=== PATIENT | female | born 1985 | race American Indian/Alaskan Native ===

== ENCOUNTER 2021-03-17 08:03 | Emergency (ER) | payer MEDICAID ==
[2021-03-17 10:43] VITALS: BP 135/90
--- NOTE | 2021-03-17 11:18 | XRay Report ---
RIGHT HAND 3 VIEW(S) INDICATION / CLINICAL INFORMATION: injury/PAIN COMPARISON: None available. FINDINGS: BONES / JOINT(S): Acute, mildly displaced fracture of the fifth metacarpal neck with approximately 20 degrees of volar angulation of the distal fracture fragment (boxer's fracture). No significant arthr itis. SOFT TISSUES: Moderate soft tissue swelling overlying the fifth metacarpal fracture. ADDITIONAL FINDINGS: None. Signer Name: José Barrios MD Signed: 03/17/2021 11:13 AM Workstation Name: [employer]
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
== END 2021-03-17 13:24 | disposition home or self-care (01) ==
LOC: ED 08:03
DX: S62.306A Unspecified fracture of fifth metacarpal bone, right hand, initial encounter for closed fracture (principal); W51.XXXA Accidental striking against or bumped into by another person, initial encounter; Y93.89 Activity, other specified; Y92.89 Other specified places as the place of occurrence of the external cause; Y99.8 Other external cause status
CPT/HCPCS: 99283